=== PATIENT | male | born 2000 | race Caucasian/White ===

== ENCOUNTER 2021-09-16 02:07 | Emergency (ER) | payer MEDICAID ==
[~2021-09-16] VITALS: Ht 185.4 cm; Wt 118.1 kg
[2021-09-16 02:24] VITALS: BP 136/74
[2021-09-16] MEDS ORDERED: IBUPROFEN 600MG TABLET PO STA (02:31)
[2021-09-16] MEDS ORDERED: IBUP-2029 PO (03:23)
== END 2021-09-16 04:31 | disposition home or self-care (01) ==
LOC: ER 02:07
DX: S40.022A Contusion of left upper arm, initial encounter (principal); M25.531 Pain in right wrist; Y08.89XA Assault by other specified means, initial encounter; Y93.89 Activity, other specified; Y92.89 Other specified places as the place of occurrence of the external cause; Y99.8 Other external cause status
CPT/HCPCS: 99282